=== PATIENT | male | born 1995 | race Caucasian/White ===

== ENCOUNTER 2021-10-07 14:04 | Emergency (ER) | payer MEDICAID ==
[~2021-10-07] VITALS: Ht 170.2 cm; Wt 65.8 kg
[2021-10-07 14:20] VITALS: BP_SYST 149
--- NOTE | 2021-10-07 14:20 | NUR ---
PT TRIAGED AND PLACED IN ER LOBBY AWAITING AVAILABLE BED IN MAIN ED FOR AVAILABLE BED
--- NOTE | 2021-10-07 14:23 | NUR ---
PT CAME TO ER STATES 30 MIN PRIOR TO ARRIVAL WHILE AT WORK STARTED TO FEEL ANXIOUS, FLUSHED, TINGLING IN HANDS AND CHEST PRESSURE. STATES TOOK ASA TODAY. PT IS FLUSHED AND DIAPHORETIC. [id number], VSS
[2021-10-07 14:53] LABS: BILIRUBIN,URINE NEGATIVE (NEGATIVE); BLOOD, URINE NEGATIVE (NEGATIVE); CLARITY/URINE CLEAR (CLEAR); GLUCOSE,URINE NEGATIVE (NEGATIVE); KETONES,URINE NEGATIVE (NEGATIVE); LEUKOCYTE ESTERASE ,URINE NEGATIVE (NEGATIVE); NITRITE, URINE NEGATIVE (NEGATIVE); PH,URINE 6.5 (5.0-8.0); PROTEIN URINE NEGATIVE (NEGATIVE); UROBILINOGEN,URINE 0.2 (0.2-1.0)
[2021-10-07 14:54] LABS: COLOR,URINE STRAW (YELLOW)
[2021-10-07 14:57] LABS: BARBITURATE, URINE NEGATIVE (NEG <=200); BENZODIAZEPINE, URINE NEGATIVE (NEG <=150); CANNABINOID, URINE POSITIVE (NEG <=50); COCAINE, URINE NEGATIVE (NEG <=150); METHAMPHETAMINES SCREEN,URINE NEGATIVE (NEG <=500); OPIATE, URINE NEGATIVE (NEG <=100); PHENCYCLIDINE SCREEN,URINE NEGATIVE (NEG <=25); UR TRICYCLIC ANTIDEPRESSANTS NEGATIVE (NEG <=300); URINE AMPHETAMINE NEGATIVE (NEG <=500); URINE METHADONE NEGATIVE (NEG <=200); URINE OXYCODONE SCREEN NEGATIVE (NEG <=100); URINE PROPOXYPHENE SCREEN NEGATIVE (NEG <=300)
--- NOTE | 2021-10-07 14:57 | NUR ---
PT CALLED, NO ANSWER FROM ER LOBBY AND OUTSIDE ENTRANCE
== END 2021-10-07 15:00 | disposition left against medical advice (07) ==
LOC: SED 14:04
DX: F41.9 Anxiety disorder, unspecified (principal); Z53.21 Procedure and treatment not carried out due to patient leaving prior to being seen by health care provider
CPT/HCPCS: 80307; 81003; 93005